=== PATIENT | female | born 1985 | race Caucasian/White ===

== ENCOUNTER 2017-06-09 16:31 | Inpatient (IN) | payer OTHER ==
[~2017-06-09] VITALS: Ht 157.5 cm; Wt 194.0 kg
== END 2017-07-01 14:18 | disposition home or self-care (01) | DRG 775 ==
LOC: SURG-SUITE 06-29 18:03 → LDR 06-29 18:03 → SURG-SUITE 06-29 21:38 → LDR 06-30 13:45 → SURG-SUITE 07-01 14:18
PROC: 10E0XZZ Delivery of Products of Conception, External Approach (ICD-10-PCS; principal; 2017-06-29)
PROC: 0W8NXZZ Division of Female Perineum, External Approach (ICD-10-PCS; 2017-06-29)
PROC: 4A1HXCZ Monitoring of Products of Conception, Cardiac Rate, External Approach (ICD-10-PCS; 2017-06-29)
DX: O80 Encounter for full-term uncomplicated delivery (principal); Z3A.39 39 weeks gestation of pregnancy; Z37.0 Single live birth